=== PATIENT | female | born 1940 | race Caucasian/White ===

== ENCOUNTER 2019-09-20 18:00 | Inpatient (IN) | payer MEDICARE, BC ==
[~2019-09-20] VITALS: Ht 162.6 cm; Wt 68.0 kg
--- NOTE | 2019-09-20 18:09 | NUR ---
PATIENT BIB RA FROM [facility]. WITH REPORT OF S/P FALL YESTERDAY, -KO. WITH POSSIBLE LEFT HIP FRACTURE. PATIENT A/O X 1-2. SON AT BEDSIDE. WILL CONTINUE TO MONITOR
[2019-09-20] MEDS ORDERED: CHOL200059 PO (18:12)
[2019-09-20] MEDS ORDERED: TRIA0.252 PO (18:12)
[2019-09-20] MEDS ORDERED: RANI150T8 PO (18:12)
[2019-09-20] MEDS ORDERED: ATOR40TA PO (18:12)
[2019-09-20] MEDS ORDERED: DIPH50CA4 PO (18:12)
[2019-09-20] MEDS ORDERED: ACET-73 PO (18:12)
[2019-09-20] MEDS ORDERED: CLOP75TA15 PO (18:12)
[2019-09-20] MEDS ORDERED: QUET25TA PO (18:12)
[2019-09-20] MEDS ORDERED: ONDANSETRON HCL/PF 4 MG/2 ML VIAL ONE (18:19)
[2019-09-20] MEDS ORDERED: MORPHINE SULFATE INJ 4 MG/ML DISP.SYRIN ONE (18:19)
[2019-09-20 18:21] LABS: BASOPHILS # (AUTO) 0.1 /CMM (0.0-0.2); BASOPHILS % (AUTO) 0.8 % (0.0-2.0); EOSINOPHILS % (AUTO) 0.5 % (0.0-6.0); HEMATOCRIT 23 % (33-45); LYMPHOCYTES # (AUTO) 2.5 /CMM (0.8-4.8); MEAN CORPUSCULAR HGB CONC 31 g/dl (31.0-36.0); MEAN CORPUSCULAR VOLUME 70 fL (82-100); MONOCYTES # (AUTO) 1.6 /CMM (0.1-1.30); MONOCYTES % (AUTO) 11.7 % (2.0-12.0); NEUTROPHILS # (AUTO) 9.1 /CMM (1.8-8.9); PLATELET COUNT (AUTO) 364 /CMM (150-450); RED BLOOD CELL COUNT(AUTO) 3.27 MIL/uL (4.0-5.2); WHITE BLOOD COUNT (AUTO) 13.4 K/uL (4.3-11.0)
[2019-09-20] MEDS ORDERED: MORPHINE SULFATE INJ 2 MG/ML DISP.SYRIN IV ONE (18:30)
[2019-09-20] MEDS ORDERED: ONDANSETRON HCL/PF 4 MG/2 ML VIAL IVP ONE (18:30)
[2019-09-20 18:40] LABS: CALCIUM, SERUM 8.6 mg/dL (8.5-10.1); CARBON DIOXIDE 23 mmol/L (21-32); CHLORIDE 103 mmol/L (98-107); CREATININE 0.9 mg/dL (0.6-1.3); GLUCOSE 125 mg/dL (74-106); SODIUM SERUM 139 mmol/L (136-145); UREA NITROGEN, BLOOD 12 mg/dL (7-18)
[2019-09-20 18:43] LABS: POTASSIUM 2.8 mmol/L (3.5-5.1)
[2019-09-20] MEDS ORDERED: POTASSIUM CL. PREMIX PERIPHER. 100 ML ONE (18:50)
[2019-09-20] MEDS: POTASSIUM CL. PREMIX PERIPHER. 50 ML IV SCH ×2 (19:00→19:48)
--- NOTE | 2019-09-20 19:10 | NUR ---
PT HAS LLE EXTERNAL ROTATION AND SHORTENING NOTED.
--- NOTE | 2019-09-20 19:10 | NUR ---
REPORT REC'D FROM ED LEUNG FOR ROVERTO.
[2019-09-20 19:46] LABS: LYMPHOCYTES % (MANUAL) 21 % (16-48); NEUTROPHILS % (MANUAL) 70 (42-76)
[2019-09-20 19:47] LABS: MONOCYTES % (MANUAL) 9 % (0-11.0)
--- NOTE | 2019-09-20 20:14 | NUR ---
CALLING REPORT TO ED LUCAS.
--- NOTE | 2019-09-20 20:30 | NUR ---
MS/RN NOTES RECEIVED PT. FROM ER VIA JARED. PT. IS AWAKE, ALERT AND ORIENTED TO SELF. BREATHING EVEN AND UNLABORED ON ROOM AIR. NO SOB, RESPIRATORY DISTRESS OR COMPLAINTS OF PAIN NOTED AT THIS TIME. PT. WITH RIGHT AC 18 GAUGE IV SALINE LOCK PRESENT, PATENT AND INTACT. ORIENTED PT. TO ROOM. PT. SON BRETT PRESENT AT BEDSIDE, BRETT STATES HE WANTS TO BE CALLED WHEN THERE IS A SCHEDULED TIME FOR HIS MOTHERS SURGERY. BED LOCKED AND IN LOWEST POSITION, SIDE RAILS UP X3, BED ALARM ON, CALL LIGHT WITHIN REACH, AWAITING ADMITTING ORDERS. WILL CONTINUE TO MONITOR.
[2019-09-20 20:35] VITALS: BP 110/66
[2019-09-20] MEDS ORDERED: POTASSIUM CHLORIDE 20 MEQ TAB.PRT.SR PO ONE (21:30)
[2019-09-20] MEDS ORDERED: MAGNESIUM HYDROXIDE 30 ML UDC PO PRN (21:30)
[2019-09-20] MEDS ORDERED: ACETAMINOPHEN 325 MG TABLET PO PRN (21:30)
[2019-09-20] MEDS ORDERED: HYDROCODONE/APAP 5/325MG 1 EACH TABLET PO PRN (21:30)
[2019-09-20] MEDS ORDERED: ZOLPIDEM TARTRATE 5 MG TABLET PO PRN (21:30)
[2019-09-20] MEDS ORDERED: ONDANSETRON HCL/PF 4 MG/2 ML VIAL IVP PRN (21:30)
[2019-09-20] MEDS ORDERED: MAG HYDROX/AL HYDROX/SIMETH 30 ML UDC PO PRN (21:30)
[2019-09-20] MEDS ORDERED: Z GUARD REMEDY 2 OZ OINT TP PRN (21:30)
--- NOTE | 2019-09-20 22:15 | NUR ---
MS/RN NOTES CALLED PT. TYRONE WEST AND INFORMED HIM THAT DERRICK MACHUCA ORDERED 2 UNITS PRBC'S TO BE TRANSFUSED NOW BECAUSE PT. H/H IS 7.0/23. PT. TYRONE WEST GAVE TELEPHONE CONSENT FOR PT. TO HAVE BLOOD TRANSFUSION, TELEPHONE CONSENT WAS WITNESSED BY ED JOHNSON. WILL CONTINUE TO MONITOR.
[2019-09-20] MEDS: diphenhydrAMINE HCL 25 MG CAPSULE PO SCH (22:24)
[2019-09-20] MEDS: ATORVASTATIN 40 MG TABLET PO SCH (22:24)
[2019-09-21] VITALS (42 sets, daily range): BP systolic 85–136; BP diastolic 39–100
[2019-09-21] MEDS: MORPHINE SULFATE INJ 2 MG/ML DISP.SYRIN IV PRN ×4 (00:21→18:01)
--- NOTE | 2019-09-21 03:35 | NUR ---
MS/ RN NOTES PT. RECEIVED 1 UNIT PRBC ORDERED. PT. TOLERATED TRANSFUSION WELL. NO ADVERSE REACTIONS NOTED. VITAL SIGNS STABLE. WILL CONTINUE TO MONITOR.
[2019-09-21 06:05] LABS: BASOPHILS % (AUTO) 0.3 % (0.0-2.0); EOSINOPHILS % (AUTO) 1.1 % (0.0-6.0); HEMATOCRIT 26 % (33-45); HEMOGLOBIN 8.3 g/dL (11.5-14.8); LYMPHOCYTES # (AUTO) 1.9 /CMM (0.8-4.8); LYMPHOCYTES % (AUTO) 13.9 % (20.0-44.0); MEAN CORPUSCULAR HGB CONC 32 g/dl (31.0-36.0); MEAN CORPUSCULAR VOLUME 74 fL (82-100); MONOCYTES # (AUTO) 1.5 /CMM (0.1-1.30); MONOCYTES % (AUTO) 10.8 % (2.0-12.0); NEUTROPHILS % (AUTO) 73.9 % (43.0-81.0); PLATELET COUNT (AUTO) 331 /CMM (150-450); RED BLOOD CELL COUNT(AUTO) 3.55 MIL/uL (4.0-5.2); WHITE BLOOD COUNT (AUTO) 13.6 K/uL (4.3-11.0)
[2019-09-21 06:45] LABS: CREATININE 0.7 mg/dL (0.6-1.3); MAGNESIUM 1.7 mg/dL (1.8-2.4); PHOSPHORUS 3.3 mg/dL (2.5-4.9)
[2019-09-21 06:53] LABS: THYROID STIMULATING HORMONE 3.091 uIU/mL (0.358-3.74)
--- NOTE | 2019-09-21 07:30 | NUR ---
MS/RN NOTES PT. IS LYING IN BED. PT. IS AWAKE, ALERT AND ORIENTED TO SELF. BREATHING EVEN AND UNLABORED ON 3LPM O2 VIA NC. NO SOB, RESPIRATORY DISTRESS OR COMPLAINTS OF PAIN NOTED AT THIS TIME. PT. WITH RIGHT AC 18 GAUGE PERIPHERAL IV PRESENT, PATENT AND INTACT ADMINISTERING TO PT. 2ND UNIT OF PRBC. PT. IS TOLERATING TRANSFUSION WELL. VITAL SIGNS STABLE. PT. REMAINS NPO SINCE MIDNIGHT. ALL PT. NEEDS MET. SAFETY, ASPIRATION AND BLEEDING PRECAUTIONS IMPLEMENTED AND IN PLACE. BED LOCKED AND IN LOWEST POSITION, SIDE RAILS UP X3, BED ALARM ON, CALL LIGHT WITHIN REACH. GAVE REPORT TO ED LEUNG FOR CONTINUITY OF CARE.
--- NOTE | 2019-09-21 08:10 | NUR ---
ms rn received on bed, awake,very confuse at this time,s/p left hip fracture,repositioned for comfort, all needs attended.
[2019-09-21] MEDS ORDERED: ACETAMINOPHEN 325 MG TABLET PO PRN (08:30)
[2019-09-21] MEDS: CHOLECALCIFEROL 1,000 UNIT TABLET (VIT D3) PO SCH (09:00)
[2019-09-21] MEDS ORDERED: PANTOPRAZOLE 40 MG VIAL IV SCH (09:00)
--- NOTE | 2019-09-21 09:20 | NUR ---
ms partha becerra called,patient is scheduled for surgery at 1230 today, patient remain on npo at this time.
--- NOTE | 2019-09-21 09:55 | NUR ---
ms rn called the family for consent, wants md to call them first.
[2019-09-21] MEDS: Magnesium 1GM/D5W 100ML PREMIX 100 ML IV SCH ×2 (10:49→15:16)
[2019-09-21] MEDS: IV NS 0.9% 1,000 ML IV PRN ×2 (10:55→17:51)
--- NOTE | 2019-09-21 11:50 | NUR ---
ms rn got consent from daughter,will call her ben.
[2019-09-21] MEDS ORDERED: BACITRACIN 50000 UNITS/VIAL ONE (11:52)
[2019-09-21] MEDS ORDERED: BUPIVACAINE 0.5 % PF 150 MG/30 ML VIAL ONE (11:52)
--- NOTE | 2019-09-21 12:00 | NUR ---
ms rn patient went down to surgery,all needs attended.
[2019-09-21] MEDS ORDERED: DILTIAZEM HCL 25 MG IV ONE (12:55)
[2019-09-21] MEDS ORDERED: TRANEXAMIC ACID 1,000 MG in IV NS 0.9% 100 ML IV ONE (13:30)
[2019-09-21] MEDS ORDERED: DILTIAZEM HCL IV 125 MG in IV D5W 100 ML IV PRN ×2 (13:30→15:30)
[2019-09-21] MEDS ORDERED: FENTANYL PF 100MCG/2ML AMPUL ONE (14:32)
[2019-09-21] MEDS ORDERED: MIDAZOLAM HCL 2 MG/2ML VIAL ONE (14:52)
--- NOTE | 2019-09-21 15:15 | NUR ---
ICU/RN: RECEIVED PT POST OP FOR LEFT HIP ALE. PT WAS RECEIVED IN OR WITH A.FIB WITH RVR, CALLED AND CARDIZEM DRIP STARTED. PT CONFUSED, FOLLOWS SOME SIMPLE COMMANDS. RECEIVED PT S/P, PT CONTINUES TO BE UNCONTROLLED A.FIB ON TELE HR 115-120. ON 2 LITERS NASAL CANULA, NO DISTRESS. PT PULLING OUT LINES, BILATERAL SOFT WRIST RESTRAINTS PLACED, WILL ASSESS PER PROTOCOL. ALVARES CATH IN PLACE, DRAINING YELLOW URINE. ABDUCTOR PILLOW IN PLACE. INCISION CLEAN AND DRY, DRESSING APPLIED. PIV PATENT AND INTACT, IVF AND CARDIZEM INFUSING. ALL NEEDS WILL BE ATTENDED TO, SAFETY MEASURES TAKEN, BED IN LOW POSITION, SIDE RAILS UP, CALL LIGHT WITHIN REACH. WILL CONTINUE CARE
--- NOTE | 2019-09-21 15:50 | NUR ---
ms attorney law clerk called that pt will be transferred to icu,after surgery.report given to Presoius partha
[2019-09-21] MEDS: QUETIAPINE FUMARATE 25 MG TABLET PO SCH (18:00)
--- NOTE | 2019-09-21 18:43 | NUR ---
ICU/RN: BEDSIDE NURSING SWALLOW DONE. PT UNABLE TO SWALLOW, SPITTING OUT. HELD SEROQUEL.
--- NOTE | 2019-09-21 19:00 | NUR ---
RECEIVED PATIENT AWAKE,ALERT ,CONFUSED,DOES NOT FOLLOW COMMANDS,RESTLESS,AGITATED, ON BILATERAL SOFT WRIST RESTRAINTS. ON CARDIZEM DRIP @ 5 MG/H DUE TO AFIB WITH RVR. WITH LEFT HIP DRESSING DRY AND INTACT S/P LEFT HIP HEMIARTHROPLASTY, WITH ADDUCTOR FOAM IN BETWEEN LEGS.COMFORT CARE DONE, WILL CLOSELY MONITOR BP AND HEART RATE AND ADJUST CARDIZEM DRIP TOLERATED.
--- NOTE | 2019-09-21 19:25 | NUR ---
ICU/RN: ENDING NOTES,AM BEDSIDE REPORT ENDORSED TO NIGHT NURSE. PT AWAKE, CONFUSED. UNCONTROLLED A.FIB ON TELE, CARDIZEM DRIP INFUSING. ON 2LITERS NASAL CANULA, NO DISTRESS NOTED. ALVARES CATH IN PLACE. PIV'S PATENT AND INTACT, NO S/S OF INFECTION OR INFILTRATION NOTED. ENDORSED FOR ROVERTO. BILATERAL SOFT RESTRAINTS IN PLACE, ASSESSED PER PROTOCOL.
--- NOTE | 2019-09-21 21:00 | NUR ---
RESTLESS,CONFUSE,PULLED OUT ALL IV'S.HEART RATE INCREASED IN THE 130'S WHEN AGITATED.
[2019-09-21] MEDS ORDERED: CEFAZOLIN 2 GM ONE (21:41)
[2019-09-21] MEDS: ANCEF 1 GM/50 ML D5W IV SCH ×2 (21:45)
[2019-09-21] MEDS: diphenhydrAMINE HCL 25 MG CAPSULE PO SCH (22:00)
[2019-09-21] MEDS: ATORVASTATIN 40 MG TABLET PO SCH (22:00)
--- NOTE | 2019-09-21 22:00 | NUR ---
UNCOOPERATIVE, TRIED TO GIVE HER DUE PO MEDS BUT PATIENT SPITS OUT EITHER WITH WATER OR APPLE SAUCE.
--- NOTE | 2019-09-21 23:00 | NUR ---
PATIENT FINALLY QUIET AND ASLEEP, HEART RATE IN THE LOW 100'S WHEN CALM AND QUIET .
[2019-09-22] VITALS (38 sets, daily range): BP systolic 89–131; BP diastolic 18–79
--- NOTE | 2019-09-22 | NUR ---
AWAKENED AGAIN ,RESTLESS ,CONFUSED,TALKING INCOHERENTLY. UNABLE TO REPORT IF SHE HAS PAIN BUT PATIENT LOOKS UNEASY AND RESTLESS. 0030 HEART RATE 120-130S , CARDIZEM DRIP INCREASED TO 10 MG/HR, WILL CLOSELY MONITOR BP . MORPHINE 1 MG IVP GIVEN FOR ASSUMED PAIN SINCE PATIENT IS RESTLESS.
[2019-09-22] MEDS: MORPHINE SULFATE INJ 2 MG/ML DISP.SYRIN IV PRN ×4 (00:09→22:33)
--- NOTE | 2019-09-22 02:00 | NUR ---
ASLEEP, HEART RATE LOW IN T HE LOW 100'S-90'S IF CALM .CONTINUE TO MONITOR
--- NOTE | 2019-09-22 04:00 | NUR ---
REMAINS CALM,ASLEEP.CARDIZEM DRIP @ 5 MG/HR
[2019-09-22 04:46] LABS: BASOPHILS % (AUTO) 0.3 % (0.0-2.0); EOSINOPHILS % (AUTO) 0.1 % (0.0-6.0); HEMATOCRIT 27 % (33-45); HEMOGLOBIN 8.8 g/dL (11.5-14.8); LYMPHOCYTES # (AUTO) 2.2 /CMM (0.8-4.8); LYMPHOCYTES % (AUTO) 13.6 % (20.0-44.0); MEAN CORPUSCULAR HGB CONC 33 g/dl (31.0-36.0); MEAN CORPUSCULAR VOLUME 77 fL (82-100); MONOCYTES # (AUTO) 1.7 /CMM (0.1-1.30); NEUTROPHILS # (AUTO) 11.9 /CMM (1.8-8.9); PLATELET COUNT (AUTO) 263 /CMM (150-450); RED BLOOD CELL COUNT(AUTO) 3.52 MIL/uL (4.0-5.2); WHITE BLOOD COUNT (AUTO) 15.9 K/uL (4.3-11.0)
[2019-09-22 04:58] LABS: CALCIUM, SERUM 7.5 mg/dL (8.5-10.1); CREATININE 0.7 mg/dL (0.6-1.3); PHOSPHORUS 3.7 mg/dL (2.5-4.9); POTASSIUM 3.7 mmol/L (3.5-5.1)
--- NOTE | 2019-09-22 05:00 | NUR ---
AM BATH DONE. UNABLE TO SCALE DEGREE OF PAIN BUT PATIENT CRYING AND SCREAMING WHEN TURNED TO SIDES.PREMEDICATED PATIENT WITH MORPHINE 1 MG IV PRIOR TURNING
[2019-09-22] MEDS: ANCEF 1 GM/50 ML D5W IV SCH ×4 (05:12→13:00)
--- NOTE | 2019-09-22 07:00 | NUR ---
STILL ON AFIB,RATE STILL GOES UP TO 100'S ,CARDIZEM DRIP AT 5 MG/HR.V/S STABLE. REPORT GIVEN TO RADHA WARD.
--- NOTE | 2019-09-22 07:25 | NUR ---
TRAVEL REGISTERED NURSE NICU OPENING NOTE RECEIVED REPORT FROM PM NURSE.PATIENT IN BED. ALERT &CONFUSED.DOES NOT FOLLOW COMMANDS.ON BILATERAL SOFT WRIST RESTRAINTS. ON CARDIZEM DRIP @ 5 MG/FOR AFIB WITH RVR.ON TELE MONITOR AFIB HR 90'S-100'S. S/P LEFT HIP HEMIARTHROPLASTY WITH LEFT HIP DRESSING DRY AND INTACT. WITH ABDUCTION PILLOW.IV LINES ARE INTACT AND PATENT.ON 2L NASAL CANULA.NO SOB NO DISTRESS NOTED.BED IS LOW AND IN LOCKED POSITION.CALL LIGHT IN REACH.BED ALARM ON.SRX3.WILL CONTINUE TO MONITOR.
[2019-09-22] MEDS ORDERED: AMIODARONE 150 MG in IV D5W 100 ML IV ONE (07:30)
[2019-09-22] MEDS ORDERED: AMIODARONE 900 MG in IV D5W 500 ML IV PRN (07:30)
--- NOTE | 2019-09-22 07:45 | NUR ---
GROUND WORKER NOTE SEEN BY .GOT NEW ORDERS.PATIENT CONVERTED TO SINUS RHYTHM FROM AFIB @0723. MADE AWARE.GOT NEW ORDER TO START ON PO AMIODARONE 400MG PO TID .NO AMIODARONE DRIP.NOT ADMINISTERED AMIODARONE DRIP.WILL CONTINUE TO MONITOR.
--- NOTE | 2019-09-22 07:56 | NUR ---
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 RECOMMENDATIONS MADE FOR SKIN CARE AND PROTECTION. DISCUSSED WITH NURSING STAFF. CURRENT JEVON SCORE IS 14. WILL SEE PRN. PENA IN AGREEMENT WITH PLAN OF CARE. Addendum: 09/22/19 at 0758 by ARIEL RÍOS WNDNU Amended: Links added.
[2019-09-22 08:26] LABS: ALBUMIN 1.9 g/dL (3.4-5.0); BILIRUBIN,DIRECT 0.2 mg/dL (0.0-0.2); BILIRUBIN,TOTAL 0.8 mg/dL (0.2-1.0)
[2019-09-22] MEDS: AMIODARONE HCL 200 MG TABLET PO SCH ×3 (08:51→18:23)
[2019-09-22] MEDS: CHOLECALCIFEROL 1,000 UNIT TABLET (VIT D3) PO SCH (08:51)
[2019-09-22] MEDS ORDERED: RIVAROXABAN 15 MG TABLET PO SCH (09:00)
[2019-09-22] MEDS ORDERED: ENOXAPARIN SODIUM 40 MG/0.4 ML DISP.SYRIN SQ SCH (09:00)
[2019-09-22] MEDS: IV NS 0.9% 1,000 ML IV PRN (09:08)
--- NOTE | 2019-09-22 11:48 | NUR ---
MORTAR MAKERTATTOO DESIGNER NOTE PATIENT TRANSFERRED TO [facility] IN 117-1 WITH ACLS PROTOCOL.PATIENT AXOX1. WITH CONFUSION.ON O2 2L VIA NASAL CANULA.NO SOB NO DISTRESS NOTED.ON TELE MONITOR SR WITH HR IN 60'S TO 70'S.IV LINES ARE INTACT AND PATENT.BILATERAL SOOT RESTRAINTS ON.VISUAL CHECK DONE.SKI IS INTACT.SURGICAL SITE CLEAN AD DRY.DRESSING INTACT.REPORT GIVEN TO STEFANIE WARD FOR ROVERTO.
--- NOTE | 2019-09-22 13:45 | NUR ---
per jorge taylor dnp, xarelto ok to give, repeat h&h
[2019-09-22] MEDS: RIVAROXABAN 10 MG TABLET PO SCH (14:30)
[2019-09-22 14:32] LABS: APPEARANCE,URINE CLOUDY (CLEAR); BILIRUBIN,URINE NEGATIVE (NEGATIVE); BLOOD, URINE LARGE Ery/uL (NEGATIVE); COLOR,URINE YELLOW (YELLOW); KETONES,URINE NEGATIVE (NEGATIVE); LEUKOCYTE ESTERASE ,URINE SMALL (NEGATIVE); NITRITE, URINE NEGATIVE (NEGATIVE); PH,URINE 5.5 (5.0-8.0); PROTEIN,URINE 100 mg/dl (NEGATIVE); UGLUCOSE NEGATIVE (NEGATIVE)
[2019-09-22 16:20] LABS: BACTERIA,URINE None seen /HPF (None Seen); SQUAMOUS EPITHELIAL CELL,UR Few /HPF (None Seen); URINE AMORPHOUS URATE Few /HPF (None Seen)
[2019-09-22 18:13] LABS: HEMOGLOBIN 8.5 g/dL (11.5-14.8)
[2019-09-22] MEDS: QUETIAPINE FUMARATE 25 MG TABLET PO SCH (18:24)
--- NOTE | 2019-09-22 19:09 | NUR ---
PERSONAL CAREGIVER CLOSING Patient remains A/Ox1. On 2L O2 via NC, no SOB or resp distress. Tele monitor attached, SR 70s this shift. No reports of rapid rate from telemetry monitor. Reeves draining to gravity, no kinks, clarence, cloudy urine, 200mL this shift. Sent urine specimen for UA that was ordered on 09/20. Pending stool OB endorsed to XAVIER RN. No bleeding noted at sx site. Dressing C/D/I. seen by surgical PA today. Eating 5-20% of food. IV on R FA patent. no s/s infiltration. ifusing NS @75mL/hr. HOB elevated for aspiration precautions. Suction at bedside. Knee immobilizer kept on at all times. Sensation and reflex intact on L leg. Noted edema. PA note - US LLE - no order? Morphine given for pain x1.
[2019-09-22] MEDS: diphenhydrAMINE HCL 25 MG CAPSULE PO SCH (22:32)
--- NOTE | 2019-09-22 23:52 | NUR ---
RECEIVED REPORT FROM VERONIKA BROWNING FOR ROVERTO.
[2019-09-23] VITALS: BP 104/53
[2019-09-23] MEDS: IV NS 0.9% 1,000 ML IV PRN ×2 (03:38→19:15)
[2019-09-23 04:00] VITALS: BP 108/56
[2019-09-23 07:08] LABS: BASOPHILS % (AUTO) 0.4 % (0.0-2.0); EOSINOPHILS % (AUTO) 2.5 % (0.0-6.0); HEMATOCRIT 24 % (33-45); HEMOGLOBIN 7.6 g/dL (11.5-14.8); LYMPHOCYTES # (AUTO) 2.2 /CMM (0.8-4.8); LYMPHOCYTES % (AUTO) 21.4 % (20.0-44.0); MEAN CORPUSCULAR HGB CONC 32 g/dl (31.0-36.0); MEAN CORPUSCULAR VOLUME 77 fL (82-100); NEUTROPHILS # (AUTO) 6.8 /CMM (1.8-8.9); NEUTROPHILS % (AUTO) 65.7 % (43.0-81.0); PLATELET COUNT (AUTO) 224 /CMM (150-450); RED BLOOD CELL COUNT(AUTO) 3.05 MIL/uL (4.0-5.2); WHITE BLOOD COUNT (AUTO) 10.3 K/uL (4.3-11.0)
--- NOTE | 2019-09-23 07:13 | NUR ---
EMPLOYEE SERVICE OFFICER CLOSING NOTES PATIENT SLEEPING, BUT EASY TO AROUSE, A/OX1. SITTER AT BEDSIDE FOR PT SAFETY. ON TELE MONITOR SR WITH HR 70'S. ON O2 2L VIA NASAL CANULA, NO SOB OR RESPIRATORY DISTRESS NOTED. IV SITE FLUSHING AND PATENT, IVF RUNNING ORDERED, NO INFILTRATION NOTED. PT ON BILATERAL SOFT WRIST RESTRAINTS, VISUAL CHECK DONE, SKIN IS INTACT, SURGICAL SITE CLEAN AND DRY, DRESSING INTACT. ALVARES CATH INTACT AND DRAINING WELL. REPOSITIONED Q2H. SAFETY MEASURES MAINTAINED; CALL LIGHT WITHIN REACH, SIDE RAILS UP X2, BED ALARM ON. ENDORSED TO AM RN FOR ROVERTO.
[2019-09-23 07:17] LABS: CALCIUM, SERUM 7.4 mg/dL (8.5-10.1); CARBON DIOXIDE 21 mmol/L (21-32); CHLORIDE 106 mmol/L (98-107); CREATININE 0.5 mg/dL (0.6-1.3); GLUCOSE 89 mg/dL (74-106); MAGNESIUM 1.7 mg/dL (1.8-2.4); PHOSPHORUS 2.7 mg/dL (2.5-4.9); POTASSIUM 3.6 mmol/L (3.5-5.1); SODIUM SERUM 138 mmol/L (136-145); UREA NITROGEN, BLOOD 13 mg/dL (7-18)
[2019-09-23 08:00] VITALS: BP 108/57
[2019-09-23] MEDS: MORPHINE SULFATE INJ 2 MG/ML DISP.SYRIN IV PRN (08:10)
[2019-09-23] MEDS: CHOLECALCIFEROL 1,000 UNIT TABLET (VIT D3) PO SCH (08:10)
[2019-09-23] MEDS: AMIODARONE HCL 200 MG TABLET PO SCH ×3 (08:10→18:13)
[2019-09-23] MEDS: Magnesium 1GM/D5W 100ML PREMIX 100 ML IV SCH ×2 (10:25→13:29)
[2019-09-23 10:31] LABS: IRON, SERUM 15 ug/dl (50-175); TOTAL IRON BINDING CAPACITY 227 ug/dl (250-450)
[2019-09-23 10:44] LABS: FERRITIN 77 ng/mL (8-388)
[2019-09-23 12:00] VITALS: BP 107/55
--- NOTE | 2019-09-23 15:16 | NUR ---
jorge taylor aware of hgb trend, verbalized ok to give xarelto, "will give iron"
[2019-09-23] MEDS ORDERED: FUROSEMIDE 20 MG/2 ML VIAL IV ONE ×2 (15:30→18:30)
[2019-09-23 16:00] VITALS: BP 113/58
[2019-09-23] MEDS: QUETIAPINE FUMARATE 25 MG TABLET PO SCH (18:13)
[2019-09-23] MEDS: RIVAROXABAN 10 MG TABLET PO SCH (18:14)
--- NOTE | 2019-09-23 18:57 | NUR ---
MS RN CLOSING patient remains A/Ox1, awake, able to follow command. No S/S stroke noted. On room air, no SOB or resp distress. Marlon Gonzalez made aware of low urine output, received order for lasix x1, carried out. Surgical site dressing remains C/D/I. No bleeding noted. Marlon Gonzalez aware of HGB trend, see previous nursing note. Hip abduction/immobilizer on at all times. R FA 20G C/D/I, patent, infusing NS @75mL. Sitter at bedside for safety as patient tries to get out of bed and pull out lines. Endorsed to NOC RN for ROVERTO
--- NOTE | 2019-09-23 19:00 | NUR ---
RN OPENING NOTES: PATIENT ASLEEP BUT EASILY AROUSABLE. NO RESPIRATORY DISTRESS. ON RA, TOLERATING WELL. NO S/S OF PAIN. AAOX1. (R) FA G20 INTACT, PATENT, AND FLUSHING WELL RUNNING NS AT 75 MLS/HR. ALVARES INTACT AND PATENT, DRAINING CLEAR YELLOW URINE. ABDUCTOR PILLOW IN PLACE. SITTER AT BEDSIDE. SAFETY PRECAUTIONS IMPLEMENTED. BED LOCKED AND IN LOWEST POSITION. CALL LIGHT PLACED WITHIN REACH. WILL CONT. TO MONITOR.
[2019-09-23 20:00] VITALS: BP 103/51
[2019-09-23] MEDS: diphenhydrAMINE HCL 25 MG CAPSULE PO SCH (21:11)
--- NOTE | 2019-09-24 | NUR ---
RN NOTE: PATIENT STILL ATTEMPTING TO PULL ON IV SITE/LINES. PAGED DR. DELGADO. PER , OK TO RENEW BILATERAL SOFT WRIST RESTRAINTS.
[2019-09-24 04:00] VITALS: BP 108/49
[2019-09-24] MEDS: IV NS 0.9% 1,000 ML IV PRN (06:13)
[2019-09-24 06:35] LABS: BASOPHILS % (AUTO) 0.2 % (0.0-2.0); EOSINOPHILS % (AUTO) 3.3 % (0.0-6.0); HEMATOCRIT 24 % (33-45); HEMOGLOBIN 7.6 g/dL (11.5-14.8); LYMPHOCYTES # (AUTO) 1.8 /CMM (0.8-4.8); LYMPHOCYTES % (AUTO) 20.4 % (20.0-44.0); MEAN CORPUSCULAR HGB CONC 32 g/dl (31.0-36.0); MEAN CORPUSCULAR VOLUME 77 fL (82-100); MONOCYTES % (AUTO) 11.2 % (2.0-12.0); NEUTROPHILS # (AUTO) 5.7 /CMM (1.8-8.9); NEUTROPHILS % (AUTO) 64.9 % (43.0-81.0); PLATELET COUNT (AUTO) 248 /CMM (150-450); RED BLOOD CELL COUNT(AUTO) 3.06 MIL/uL (4.0-5.2); WHITE BLOOD COUNT (AUTO) 8.8 K/uL (4.3-11.0)
[2019-09-24 07:03] LABS: ALANINE AMINOTRANSFERASE 25 U/L (12-78); ALBUMIN 1.5 g/dL (3.4-5.0); ALKALINE PHOSPHATASE 75 U/L (46-116); ASPARTATE AMINOTRANSFERASE 36 U/L (15-37); BILIRUBIN,TOTAL 0.5 mg/dL (0.2-1.0); CALCIUM, SERUM 7.1 mg/dL (8.5-10.1); CARBON DIOXIDE 24 mmol/L (21-32); CHLORIDE 106 mmol/L (98-107); CREATININE 0.5 mg/dL (0.6-1.3); GLUCOSE 101 mg/dL (74-106); MAGNESIUM 1.8 mg/dL (1.8-2.4); PHOSPHORUS 2.2 mg/dL (2.5-4.9); SODIUM SERUM 138 mmol/L (136-145); TOTAL PROTEIN, SERUM 4.7 g/dL (6.4-8.2); UREA NITROGEN, BLOOD 7 mg/dL (7-18)
--- NOTE | 2019-09-24 07:15 | NUR ---
RN CLOSING NOTES: PATIENT ASLEEP BUT EASILY AROUSABLE. NO RESPIRATORY DISTRESS. ON RA, TOLERATING WELL. NO S/S OF PAIN. AAOX1. (R) FA G20 INTACT, PATENT, AND FLUSHING WELL RUNNING NS AT 75 MLS/HR. ENDORSED TO AM SHIFT NURSE FOR CONTINUITY OF CARE.
[2019-09-24 08:00] VITALS: BP 128/68
[2019-09-24] MEDS: CHOLECALCIFEROL 1,000 UNIT TABLET (VIT D3) PO SCH (08:57)
[2019-09-24] MEDS: AMIODARONE HCL 200 MG TABLET PO SCH ×3 (08:58→16:54)
[2019-09-24] MEDS ORDERED: POTASSIUM CHLORIDE 20 MEQ POWDER PACKET PO SCH (10:30)
[2019-09-24 12:00] VITALS: BP 103/56
[2019-09-24] MEDS ORDERED: K PHOS NEUTRAL 250 MG TABLET PO ONE (12:00)
[2019-09-24] MEDS ORDERED: RIVA10TA PO (12:11)
[2019-09-24] MEDS ORDERED: FERR325T23 PO (12:11)
[2019-09-24] MEDS ORDERED: AMIO200T7 PO (12:11)
[2019-09-24] MEDS ORDERED: CEPH-569 PO (12:11)
[2019-09-24] MEDS ORDERED: SOD FERRIC GLUC 125 MG in IV NS 0.9% 100 ML IV SCH (14:00)
[2019-09-24] MEDS ORDERED: PNEUMOCOCCAL 23-VAL P-SAC VAC 0.5 ML VIAL SQ ONE (14:00)
[2019-09-24] MEDS ORDERED: INFLUENZA VACCINE 2019-20 0.5 ML DISP.SYRIN IM ONE (14:00)
[2019-09-24] MEDS: MORPHINE SULFATE INJ 2 MG/ML DISP.SYRIN IV PRN (15:04)
[2019-09-24 16:00] VITALS: BP 133/72
[2019-09-24] MEDS: RIVAROXABAN 10 MG TABLET PO SCH (16:55)
[2019-09-24] MEDS: QUETIAPINE FUMARATE 25 MG TABLET PO SCH (17:56)
--- NOTE | 2019-09-24 19:24 | NUR ---
rn note report given to shift production associate nurse, pt pending discharge to [facility], at 2030, report given to ED [place], discharge papers provided, teaching reinforced, pt confused and unable to verbalize understanding, son and daughter aware about discharge. exit care done,iv site removed, medication list faxed to nursing facility.
--- NOTE | 2019-09-24 19:30 | NUR ---
MS RN OPENING NOTES: RECEIVED PATIENT RESTING IN BED, ASLEEP, AROUSABLE, CONFUSED. WITH SITTER AT THE BEDSIDE. NO COMPLAIN OF PAIN. NOT IN RESP[IRATORY DISTRESS. CALL LIGHT WITHIN REACH. BED ALARM ON. WILL BE D/C TONIGHT WITH ALVARES CATHETER INTACT, DRAINING CLEAR YELLOW URINE OUTPUT. PER REPORTS FROM [facility] RN REPORTS ALREADY GIVEN TO THE SNF, D/C PACKET ALREADY PREPARED AND COMPLETED, AND ALL NECESSARY D/C REQUIREMENTS WERE ALREADY DONE BY CLARI RN. WAITING FOR THE AMBULANCE TO COME TONIGHT. PATIENT HAS ABDUCTION PILLOW ON AT ALL TIMES. WITH LEFT KNEE IMMOBILIZER ON AT ALL TIMES. SCD's ON. PICTURES ALREADY TAKEN BY ED [place], ATTACHED TO THE CHART. POST OP DRESSING IS CLEAN AND DRY. NO BLEEDING NOTED.
[2019-09-24 20:00] VITALS: BP 113/59
--- NOTE | 2019-09-24 21:15 | NUR ---
PATIENT IS BEING PICKED UP BY AMBULANCE, REPORTS GIVEN. CALLED [facility] AND INFORMED THAT PATIENT IS ON THE WAY.
--- NOTE | 2019-09-24 21:51 | NUR ---
CALLED [facility] AND TALKED TO VITA.
== END 2019-09-24 21:15 | DRG 470 ==
LOC: ER 18:10 → MED 20:05 → ICU 09-21 15:34 → TELE1 09-22 11:52 → MEDSG1 09-23 14:09
PROVIDERS: ADMIT Registered Nurse; ATTEND Nurse Practitioner Acute Care
PROC: 30233N1 Transfusion of Nonautologous Red Blood Cells into Peripheral Vein, Percutaneous Approach (ICD-10-PCS; 2019-09-20)
PROC: 0SRS0J9 Replacement of Left Hip Joint, Femoral Surface with Synthetic Substitute, Cemented, Open Approach (ICD-10-PCS; principal; 2019-09-21)
DX: S72.012A Unspecified intracapsular fracture of left femur, initial encounter for closed fracture (principal); N39.0 Urinary tract infection, site not specified; D62 Acute posthemorrhagic anemia; W07.XXXA Fall from chair, initial encounter; Z91.81 History of falling; Y92.9 Unspecified place or not applicable; E87.6 Hypokalemia; E83.42 Hypomagnesemia; E78.5 Hyperlipidemia, unspecified; D72.829 Elevated white blood cell count, unspecified; F03.90 Unspecified dementia, unspecified severity, without behavioral disturbance, psychotic disturbance, mood disturbance, and anxiety; F29 Unspecified psychosis not due to a substance or known physiological condition; Z79.02 Long term (current) use of antithrombotics/antiplatelets; J30.9 Allergic rhinitis, unspecified; Z79.899 Other long term (current) drug therapy; Z96.641 Presence of right artificial hip joint; G47.00 Insomnia, unspecified; I48.91 Unspecified atrial fibrillation; Z86.12 Personal history of poliomyelitis; I49.3 Ventricular premature depolarization
CPT/HCPCS: 36415; 71045-TC; 73020; 73502; 80048-TC; 80053-TC; 80061-TC; 80076-TC; 81000-TC; 82728-TC; 83540-TC; 83735-TC; 84100-TC; 84443-TC; 84484-TC; 85025-TC; 85027-TC; 85730-TC; 86850-TC; 86921-TC; 87081-TC; 88305-TC; 88311-TC; 90732; 93307-TC; 93971-TC; 94760-TC; 94799-TC; 97110-TC; 97112-TC; 97530-TC; C9113; G0378; J0282; J0690; J1100; J1940; J2250; J2270; J2405; J2916; J3010; J3475; J3480; J3490; J7030; J7050; J7060; P9016-BL; Q0163; Q2036

== ENCOUNTER 2019-10-26 09:47 | Outpatient (CLI) | payer OTHER, MEDICARE, BC ==
[~2019-10-26 09:47] MED LIST: ACET-73 PO; AMIO200T7 PO; ATOR40TA PO; CEPH-569 PO; CHOL200059 PO; CLOP75TA15 PO; FERR325T23 PO; QUET25TA PO; RANI150T8 PO; RIVA10TA PO; TRIA0.252 PO
== END 2019-10-26 23:59 | disposition home or self-care (01) ==
LOC: CARD 09:47
PROVIDERS: ATTEND Student in an Organized Health Care Education/Training Program
DX: I70.8 Atherosclerosis of other arteries (principal)